=== PATIENT | male | born 1955 | race Caucasian/White ===

== ENCOUNTER 2022-08-13 06:45 | Day surgery (SDC) | payer BC, MEDICARE ==
[~2022-08-13] VITALS: Ht 172 cm; Wt 95.5 kg
[~2022-08-13 06:45] MED LIST: ALPR.5 PO; ASPI81CH PO; CLOP75 PO; FISH OIL 1,0001 EAC1 PO; Hydrocodone-Ap1 EA26 PO; LISI20 PO; METO50ER PO; ROSU10TA PO; VITAMIN D2000 UNIT PO
[2022-08-13] MEDS ORDERED: NEBI5 PO (07:00)
--- NOTE | 2022-08-13 07:45 | NUR ---
Ambulatory in Day Surgery History, Chart, Medications and Allergies reviewed before start of procedure.Patient confirms NPO status and agrees with scheduled surgery. Patient reports completing Chlorhexadine shower X2 prior to admission to hospital. PATIENT WITH UNKNOWN ANITIBIOTIC REACTION IN THE PAST WITH HIVES. ANETHESIA AWARE. IN AT BEDSIDE. SCRIPT GIVEN TO TO FILL.
--- NOTE | 2022-08-13 10:00 | NUR ---
Patient up to Ambulate independently. Gait steady. Dressing to procedure site clean, dry, intact with no visible drainage, swelling, erythema or bruising noted. Abdominal binder in place. Patient States Post-Procedure ride home has been arranged with . Discharged via wheelchair to private car for ride home.
== END 2022-08-13 10:00 | disposition home or self-care (01) ==
LOC: ORD 06:45 → ORSCMMR 06:46 → ORD 07:30
PROVIDERS: Surgery
PROC: 0WUF4JZ Supplement Abdominal Wall with Synthetic Substitute, Percutaneous Endoscopic Approach (ICD-10-PCS; principal; 2022-08-13 07:30)
DX: K42.0 Umbilical hernia with obstruction, without gangrene (principal); I10 Essential (primary) hypertension
CPT/HCPCS: A9270; C1781; J0690; J1100; J1885; J2250; J2405; J2704; J2795; J3010; J7120